=== PATIENT | female | born 1960 | race Caucasian/White ===

== ENCOUNTER 2017-02-21 11:23 | Emergency (ER) | payer OTHER ==
[~2017-02-21] VITALS: Ht 160 cm; Wt 54.0 kg
[~2017-02-21 11:23] MED LIST: AVPAK AZITHROM250 M1 PO; B12,B-12,B 12500 MCG; BACTRIM DS 8001 TA1 PO; BENADRYL25 MG PO; CALAN,ISOPTIN80 MG PO; COLACE-T50 MG; CYMBALTA60 MG PO; DELTASONE10 MG PO; DITROPAN5 MG; ELMIRON100 MG PO; ESTRACE0.5 MG PO; FLEXERIL10 MG; FLOVENT DI100 MCG/Ac INH; FOSAMAX70 M1 PO; FOSAMAX70 MG PO; HYDROCODONE BIT1 T11 PO; ISORDIL TITRADOS5 MG PO; MAXALT5 MG PO; MOTRIN800 MG; MOTRIN800 MG PO; NABUMETONE750 MG PO; NORCO 5-325 TA1 EACH PO; OMEPRAZOLE20 MG PO; Oscal,Oyster S500 MG PO; PHENERGAN W/DM120 ML PO; PREVACID30 M1 PO; PROVENTIL0.09 MG/A1 INH; PROZAC20 MG PO; SEN-O-TABS8.6 MG PO; TOPAMAX100 M1 PO; TOPAMAX50 MG PO; TRAMADOL50 MG PO; VERAPAMIL HCL180 M2; VERELAN PO; VITAMIN D32000 I1 PO; WELLBUTRIN SR150 MG; XANAX0.5 MG PO; ZANAFLEX4 M2 PO; ZANAFLEX4 MG PO; ZANTAC150 MG PO; ZITHROMAX Z PA250 MG PO; ZOFRAN4 MG PO
[2017-02-21 11:38] VITALS: BP 113/88
[2017-02-21] MEDS ORDERED: LIDODERM 5% PATC1 EA PO (11:40)
[2017-02-21] MEDS ORDERED: DOK100 MG PO (11:41)
[2017-02-21] MEDS ORDERED: ELMIRON100 MG PO (11:42)
[2017-02-21] MEDS ORDERED: ASMANEX HF100 MCG/Ac INH (11:43)
[2017-02-21] MEDS ORDERED: ISOSORBIDE MON120 MG PO (11:45)
[2017-02-21] MEDS ORDERED: MAXALT5 MG PO (11:46)
[2017-02-21 12:26] LABS: BILIRUBIN NEGATIVE (NEGATIVE); BLOOD 3+ (NEGATIVE); CLARITY CLOUDY (CLEAR); COLOR YELLOW (YELLOW); GLUCOSE NEGATIVE (NEGATIVE); KETONE NEGATIVE (NEGATIVE); LEUKO ESTERASE 3+ (NEGATIVE); NITRITE NEGATIVE (NEGATIVE); PH 6.5 (5.0-9.0); PROTEIN TRACE (NEGATIVE); SPECIFIC GRAVITY <= 1.005 (1.005-1.030); UROBILINOGEN 0.2 E.U./dl (0.2-1.0)
[2017-02-21 12:55] LABS: URINE REFLEX COMMENT YES (NO); WBC TNTC wbc/hpf (0-5)
[2017-02-21] MEDS ORDERED: MACROBID100 M1 PO (13:30)
== END 2017-02-21 13:34 | disposition home or self-care (01) ==
LOC: ED 11:23
PROVIDERS: Physician Assistant
DX: N30.00 Acute cystitis without hematuria (principal); F17.200 Nicotine dependence, unspecified, uncomplicated; Z90.710 Acquired absence of both cervix and uterus; Z90.49 Acquired absence of other specified parts of digestive tract; Z98.51 Tubal ligation status; Z98.890 Other specified postprocedural states; Z79.899 Other long term (current) drug therapy; Z88.0 Allergy status to penicillin; Z88.6 Allergy status to analgesic agent

== ENCOUNTER → 2017-03-28 | Outpatient (CLI) | payer OTHER ==
[~2017-03-28] MED LIST changes: +ASMANEX HF100 MCG/Ac INH; +DOK100 MG PO; +ISOSORBIDE MON120 MG PO; +LIDODERM 5% PATC1 EA PO; +MACROBID100 M1 PO
== END | disposition home or self-care (01) ==
LOC: RAD 09:34
DX: J41.1 Mucopurulent chronic bronchitis (principal); Z87.891 Personal history of nicotine dependence

== ENCOUNTER → 2017-07-23 | Outpatient (CLI) | payer OTHER | END | disposition home or self-care (01) | LOC: RAD 12:40 | DX: M43.17 Spondylolisthesis, lumbosacral region (principal); M47.896 Other spondylosis, lumbar region; M51.37 Other intervertebral disc degeneration, lumbosacral region; G95.89 Other specified diseases of spinal cord ==

== ENCOUNTER → 2017-08-06 | Outpatient (CLI) | payer OTHER | END | disposition home or self-care (01) | LOC: MAMMO 10:16 | DX: Z12.31 Encounter for screening mammogram for malignant neoplasm of breast (principal) ==

== ENCOUNTER 2017-09-24 11:38 | Emergency (ER) | payer OTHER ==
[~2017-09-24] VITALS: Ht 160 cm; Wt 57.2 kg
[2017-09-24 11:57] VITALS: BP 144/77
[2017-09-24 12:11] LABS: BILIRUBIN NEGATIVE (NEGATIVE); BLOOD NEGATIVE (NEGATIVE); CLARITY CLEAR (CLEAR); COLOR YELLOW (YELLOW); GLUCOSE NEGATIVE (NEGATIVE); KETONE NEGATIVE (NEGATIVE); LEUKO ESTERASE NEGATIVE (NEGATIVE); NITRITE NEGATIVE (NEGATIVE); SPECIFIC GRAVITY <= 1.005 (1.005-1.030); UROBILINOGEN 0.2 E.U./dl (0.2-1.0)
[2017-09-24] MEDS ORDERED: PYRIDIUM200 M1 PO (12:16)
[2017-09-24] MEDS ORDERED: SEPTDS PO (12:16)
[2017-09-24 12:22] LABS: EPITHELIAL CELLS 0-2; WBC 0-2 wbc/hpf (0-5)
== END 2017-09-24 12:34 | disposition home or self-care (01) ==
LOC: ED 11:38
PROVIDERS: Emergency Medicine
DX: N30.01 Acute cystitis with hematuria (principal); F10.10 Alcohol abuse, uncomplicated; Z88.0 Allergy status to penicillin; Z88.6 Allergy status to analgesic agent; Z79.899 Other long term (current) drug therapy; Z90.49 Acquired absence of other specified parts of digestive tract; Z90.710 Acquired absence of both cervix and uterus

== ENCOUNTER → 2017-10-15 | Outpatient (CLI) | payer OTHER ==
[~2017-10-15] MED LIST changes: +PYRIDIUM200 M1 PO; +SEPTDS PO
== END | disposition home or self-care (01) ==
LOC: US 07:01
DX: R10.11 Right upper quadrant pain (principal); R11.0 Nausea

== ENCOUNTER → 2018-09-16 | Outpatient (CLI) | payer OTHER ==
[~2018-09-16] MED LIST changes: +TOBRADEX 0.1%-0.5 ML OPH
== END | disposition home or self-care (01) ==
LOC: US 10:15
DX: K76.89 Other specified diseases of liver (principal); R11.10 Vomiting, unspecified

== ENCOUNTER 2018-09-24 08:51 | Emergency (ER) | payer OTHER ==
[~2018-09-24] VITALS: Ht 157.4 cm; Wt 54.9 kg
[~2018-09-24 08:51] MED LIST changes: -TOBRADEX 0.1%-0.5 ML OPH
[2018-09-24 08:53] VITALS: BP 118/73
[2018-09-24] MEDS ORDERED: TOBRADEX 0.1%-0.5 ML OPH (09:09)
== END 2018-09-24 09:15 | disposition home or self-care (01) ==
LOC: ED 08:51
DX: H10.9 Unspecified conjunctivitis (principal); Z88.0 Allergy status to penicillin; Z88.6 Allergy status to analgesic agent; Z79.899 Other long term (current) drug therapy

== ENCOUNTER → 2018-10-14 | Outpatient (CLI) | payer OTHER ==
[~2018-10-14] MED LIST changes: +TOBRADEX 0.1%-0.5 ML OPH
== END | disposition home or self-care (01) ==
LOC: MRI 10-08 15:00
DX: K76.89 Other specified diseases of liver (principal)

== ENCOUNTER 2018-12-26 11:04 | Emergency (ER) | payer OTHER ==
[2018-12-26] MEDS ORDERED: CHLORZOXAZONE500 M2 PO (11:22)
[2018-12-26 12:30] VITALS: BP 142/88
[2019-02-07] MEDS ORDERED: ZOFRAN4 MG PO (11:58)
== END 2018-12-26 12:54 | disposition home or self-care (01) ==
LOC: ED 11:04
DX: M54.42 Lumbago with sciatica, left side (principal); R03.0 Elevated blood-pressure reading, without diagnosis of hypertension; Z88.0 Allergy status to penicillin; Z88.6 Allergy status to analgesic agent; Z79.899 Other long term (current) drug therapy

== ENCOUNTER → 2019-05-05 | Outpatient (CLI) | payer OTHER ==
[~2019-05-05] MED LIST changes: +CHLORZOXAZONE500 M2 PO
== END | disposition home or self-care (01) ==
LOC: MAMMO 04-20 16:00
DX: Z12.31 Encounter for screening mammogram for malignant neoplasm of breast (principal)

== ENCOUNTER 2020-04-13 15:34 | Emergency (ER) | payer OTHER ==
[~2020-04-13] VITALS: Ht 160 cm; Wt 58.1 kg
[2020-04-13 15:41] VITALS: BP 93/63
[2020-04-13] MEDS ORDERED: CEPHALEXIN500 M1 PO (16:25)
[2020-04-13] MEDS ORDERED: LIDEX 0.05% CRE15 GM T (16:25)
[2020-04-13] MEDS ORDERED: VISTARIL25 MG PO (16:25)
== END 2020-04-13 16:26 | disposition home or self-care (01) ==
LOC: ED 15:34
DX: S70.362A Insect bite (nonvenomous), left thigh, initial encounter (principal); S70.361A Insect bite (nonvenomous), right thigh, initial encounter; K21.9 Gastro-esophageal reflux disease without esophagitis; J45.909 Unspecified asthma, uncomplicated; G43.909 Migraine, unspecified, not intractable, without status migrainosus; Z88.0 Allergy status to penicillin; Z88.6 Allergy status to analgesic agent; Z79.899 Other long term (current) drug therapy; W57.XXXA Bitten or stung by nonvenomous insect and other nonvenomous arthropods, initial encounter; Y93.89 Activity, other specified; Y92.89 Other specified places as the place of occurrence of the external cause; Y99.8 Other external cause status

== ENCOUNTER → 2021-02-07 | Outpatient (CLI) | payer OTHER ==
[~2021-02-07] MED LIST changes: +CEPHALEXIN500 M1 PO; +LIDEX 0.05% CRE15 GM T; +VISTARIL25 MG PO
== END | disposition home or self-care (01) ==
LOC: CARD 01:01
PROVIDERS: ATTEND Internal Medicine
DX: R07.89 Other chest pain (principal)

== ENCOUNTER → 2021-05-23 | Outpatient (CLI) | payer OTHER | END | disposition home or self-care (01) | LOC: MAMMO 10:38 | PROVIDERS: ATTEND Internal Medicine | DX: Z12.31 Encounter for screening mammogram for malignant neoplasm of breast (principal); N64.89 Other specified disorders of breast ==

== ENCOUNTER → 2021-08-09 | Outpatient (CLI) | payer OTHER | END | disposition home or self-care (01) | LOC: US 10:30 | PROVIDERS: ATTEND Internal Medicine | DX: K76.89 Other specified diseases of liver (principal) ==

== ENCOUNTER → 2022-07-10 | Outpatient (CLI) | payer OTHER | END | disposition home or self-care (01) | LOC: CARD 00:27 | PROVIDERS: ATTEND Internal Medicine | DX: R07.89 Other chest pain (principal); F17.200 Nicotine dependence, unspecified, uncomplicated ==

== ENCOUNTER → 2022-10-31 | Outpatient (CLI) | payer OTHER | END | disposition home or self-care (01) | LOC: MAMMO 10:07 | PROVIDERS: ATTEND Internal Medicine | DX: Z12.31 Encounter for screening mammogram for malignant neoplasm of breast (principal); N63.11 Unspecified lump in the right breast, upper outer quadrant; N63.21 Unspecified lump in the left breast, upper outer quadrant ==

== ENCOUNTER → 2022-12-04 | Outpatient (CLI) | payer OTHER | END | disposition home or self-care (01) | LOC: US 09:57 | PROVIDERS: ATTEND Internal Medicine | DX: N63.10 Unspecified lump in the right breast, unspecified quadrant (principal); N64.9 Disorder of breast, unspecified ==

== ENCOUNTER → 2025-07-28 | Outpatient (CLI) | payer OTHER | END | disposition home or self-care (01) | LOC: MAMMO 10:23 | PROVIDERS: ATTEND Nurse Practitioner Family | DX: Z12.31 Encounter for screening mammogram for malignant neoplasm of breast (principal); N64.89 Other specified disorders of breast; R92.333 Mammographic heterogeneous density, bilateral breasts ==